=== PATIENT | female | born 1965 | race African-American/Black ===

== ENCOUNTER 2019-03-17 01:16 | Emergency (ER) | payer SELFPAY ==
[~2019-03-17] VITALS: Ht 182.9 cm; Wt 109.0 kg
[2019-03-17 01:22] VITALS: BP 128/78
== END 2019-03-17 02:52 | disposition left against medical advice (07) ==
LOC: ER 01:16
DX: M54.9 Dorsalgia, unspecified (principal); Z53.21 Procedure and treatment not carried out due to patient leaving prior to being seen by health care provider